=== PATIENT | male | born 1965 | race African-American/Black ===

== ENCOUNTER 2020-05-22 16:37 | Emergency (ER) | payer MEDICAID, OTHER ==
[~2020-05-22] VITALS: Ht 170.2 cm; Wt 88.0 kg
[~2020-05-22 16:37] MED LIST: ALBU17AE26; seroquel
[2020-05-22] MEDS ORDERED: IBUPROFEN 400MG TABLET PO ONE (18:00)
[2020-05-22 19:30] VITALS: BP 117/95
[2020-05-22] MEDS ORDERED: IBUP-2029 MT (19:55)
== END 2020-05-22 20:00 | disposition home or self-care (01) ==
LOC: ER 16:58
DX: S93.402A Sprain of unspecified ligament of left ankle, initial encounter (principal); F12.10 Cannabis abuse, uncomplicated; Z98.890 Other specified postprocedural states; W01.0XXA Fall on same level from slipping, tripping and stumbling without subsequent striking against object, initial encounter; Y93.67 Activity, basketball; Y92.89 Other specified places as the place of occurrence of the external cause; Y99.8 Other external cause status
CPT/HCPCS: 73560; 73600; 99284